=== PATIENT | female | born 1980 | race Caucasian/White ===

== ENCOUNTER 2024-11-20 12:22 | Outpatient (AMB) | payer BC, SELFPAY ==
--- NOTE | 2024-11-20 12:24 | MHC.PC.OV ---
Vital Signs 11/20/24 12:30 Height 5 ft 5 in Weight 198 lb BMI 32.9 BP 122/72 Blood Pressure Location Lt brachial Position Sitting Respiration 12 Pulse 68 Pulse Source Pulse Oximeter Temp 97.2 F Temp Source Oral Pulse Oximetry (%) 99 Oxygen Delivery Method Room Air Intake Visit Reasons: LAITH from María's office/continuity of care Intake Note: LAITH to establish care. Patient wants to get tested for diabetes because frequency and her mother side of the family has it. Administrative Specialist Required: No Allergies acetaminophen [From Percocet] Adverse Reaction (Severe, Verified 11/20/24 12:29) Itching oxycodone [From Percocet] Adverse Reaction (Severe, Verified 11/20/24 12:29) Itching Tobacco use date assessed: 11/20/24 Dental Screening Dental Screen Date: 11/20/24 Did you have a dental visit in the last 12 months?: No Did you have a dental problem in the last 6 months where you did not have access to dental care?: No Was dental information given to patient?: No HPI HPI Comments History of Present Illness Details 44 y/o F with obesity, NESSA, MDD, seasonal allergies, family hx lung ca (Mom), current nicotine vape use, former smoker, current MJ use, perimenopause, scoliosis Fhx: mom lung ca Surgery: oral surgery 2019 Social: [employer] Maintanence Tdap admin today Mammo she would like to defer to LEG ASSEMBLER on this DEXA still getting periods Colon due for first age 45, referred today Pap referred to LEG ASSEMBLER today Specialists [facility] LEG ASSEMBLER Chiro History of Present Illness - The patient is a 44-year-old female presenting to establish care and for CPE Previous PCP: Dr Daniel, no records Optho - wears glasses, last exam about 1 year ago. - Medical hx includes: Obesity, environmental allergies, major depressive disorder. - Nicotine vape use; smokes marijuana. - Family history of lung cancer, brain and bone metastasis, hepatitis C, and heart disease. - Lack of routine medical care for two decades. - Concerns about potential diabetes. - Perimenopausal with night sweats and sleep issues. - Scoliosis under rn complex care. - Tooth extraction in 2019; lacks recent screenings. - Seeks screening for colonoscopy and gynecological evaluation. 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 - Substance use: Former smoker, currently using nicotine vape; smokes marijuana. - Exercise: Limited due to a weight limit from chiropractic treatment for scoliosis. - Lifestyle: Uses a walking pad at home, restricted due to weight of equipment. - Nutrition: Weight gain noted; no specific dietary details provided. - Social engagement: Prefers using a digital portal for communication; avoids phone conversations. Health Maintenance - Tetanus vaccination up to date. - Referral for mammography and gynecological consultation. - Colonoscopy referral initiated due to age and family history. - Perimenopausal symptoms to be managed through gynecological referral. - Scoliosis managed by rn complex care with imaging and weight limitations discussed. - No regular physical exams or health screenings in the past 20 years. - Blood work ordered to assess potential diabetes risk. Review of Systems - Constitutional: Reports no recent illness; concerned about diabetes. - Skin: Reports good skin quality, concerned about vitamin D deficiency. - Respiratory: Reports former smoking, current nicotine vaping, and use of marijuana; no current respiratory symptoms. - Cardiovascular: Denies cardiovascular symptoms, family history of heart disease noted. - Gastrointestinal: Denies recent changes; interested in colon cancer screening. - Genitourinary: Reports regular menstruation; no mammogram. - Musculoskeletal: Reports scoliosis under rn complex care; no orthopedic symptoms. - Neurological: Denies neurological symptoms; concern for undiagnosed ADHD. - Psychological: Reports anxiety and depression; declines counseling. Physical Exam General: Well developed, well nourished, in no acute distress. Appears stated age. Head: Normocephalic, atraumatic. Eyes: Pupils are equal, round and reactive to light and accommodation. Conjunctivae are clear. Vision grossly normal. Patient wears glasses. Ears: TMs clear AU, EACS WNL. Beautiful eardrums noted. Nose: Patent, without discharge. Neck: Supple, no adenopathy or thyromegaly. No pain or tenderness upon examination. Breast: Edu on SBE. Referral to OBGYN for routine checks and perimenopausal symptoms. Lungs: Clear to auscultation bilaterally. No rales, rhonchi or wheeze noted. Good air flow in all avendano. Heart: Regular rate and rhythm. No murmurs, click, rubs or gallops are noted. Abdomen: Bowel sounds present in all quadrants. The abdomen is soft, nontender, with no masses or organomegaly noted. No hernias are noted. Pooping and peeing are normal for the patient. : Deferred. Reviewed recommendations for routine LEG ASSEMBLER. Pulses: Peripheral pulses are equal and palpable bilaterally. Extremities: No clubbing, cyanosis nor edema is noted. Neurologic: Gait and station normal. Cranial Nerves 2-12 intact. Motor strength grossly symmetrical and intact. No sensory loss. Balance normal. Skin: No rashes, ulcers, or lesions noted. Turgor is good. Skin color is good. Hair and nails are without abnormalities. Patient has nice skin, likely due to avoiding sun exposure. Psych: Normal eye contact, affect and mood appropriate, and normal interactions. Patient is alert and appropriate to context. Anxiety and depression present, but patient manages without medication. Suspected ADHD, but patient prefers not to pursue treatment. Results Pending Discussion Notes I discussed with the patient the importance of establishing regular health care and conducting necessary screenings. We reviewed the need for a colonoscopy due to her age, and I explained that it starts with a consultation before the procedure. I also talked about how colorectal cancer screening becomes important at 45. We discussed her perimenopausal symptoms, providing a referral to a operations team leader for management. I advised the patient to get her blood work done today to assess diabetes risk and will communicate the results through the patient portal. I encouraged using the patient portal for future communications and explained its benefits. I recommended that she continues to avoid smoking, noting the current unknowns surrounding vaping risk. Additionally, we addressed lifestyle management with her scoliosis and any activity limitations. Assessment and Plan 1. Obesity - Recommend weight management; exercise limited by rn complex care. 2. Environmental Allergies - Continue allergy medication. 3. Major Depressive Disorder - Reach out if would like counseling or meds. 4. Nicotine Dependence - Advise cessation; discuss vaping risks. 5. Scoliosis - Maintain rn complex care; manage weight limit. 6. Perimenopause - Gynecology referral for symptoms management. 7. Risk of Diabetes - Blood work ordered to evaluate. 8. Health Maintenance - Arrange colonoscopy and gynecological evaluations. 9. Family History - Highlight need for regular health screenings. Patient Instructions - Schedule and attend appointments for mammogram and colonoscopy consultation. - Complete blood tests today for diabetes screening; results will be available on the portal. - Follow up with operations team leader for perimenopausal symptoms. - Use the patient portal for communication and further follow-ups. - Continue allergy medications and manage nicotine use. - Be aware of family history and importance of regular screenings. - RTO 1 year CPE, sooner PRN Consent Patient was informed and verbally consented to the use of an ambient scribe for clinic note documentation during this visit. An additional 20 minutes was spent addressing the problem(s) noted at todays visit. This includes time spent before the visit reviewing the chart, time spent during the visit, and time spent after the visit on documentation reviewing laboratory results, diagnostic imaging, medications, performing a medically necessary evaluation, counseling on diagnoses, care coordination, ordering appropriate tests, ordering appropriate medications, review of tests performed by other providers, reporting test results with the patient, communication with other healthcare providers. [facility], LAT[facility] Medical History (Updated 11/20/24 @ 17:30 by Shyanne Gupta [facility]) Allergies Anxiety and depression COPD (chronic obstructive pulmonary disease) Surgical History (Updated 11/20/24 @ 12:42 by Amelia King MA) H/O oral surgery (~2019) Family History (Updated 11/20/24 @ 12:45 by Amelia King MA) Father HTN (hypertension) Substance abuse Maternal Grandmother Cardiovascular disease Paternal Grandmother Cardiovascular disease Mother Lung cancer Brain cancer Bone cancer Substance abuse Social History (Updated 11/20/24 @ 12:43 by Amelia King MA) Household Members: Spouse Housing: House Are you a primary client care manager to a significant other at home: No Do you presently have visiting nurse or other home services: No Alcohol intake: current Alcohol intake frequency: a few times a month Patient Tobacco Use Status: Never used Tobacco e-Cigarette/Vaping Use: Never Used Second Hand Smoke Exposure: No Substance Use Type: Marijuana service: No Current occupational status: employed 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 1. Little interest or pleasure in doing things: more than half the days 2. Feeling down, depressed, or hopeless: not at all 3. Trouble falling or staying asleep, or sleeping too much: nearly every day 4. Feeling tired or having little energy: nearly every day 5. Poor appetite or overeating: nearly every day 6. Feeling bad about yourself - or that you are a failure or have let yourself or your family down: more than half the days 7. Trouble concentrating on things, such as reading the newspaper or watching television: nearly every day 8. Moving or speaking so slowly that other people could have noticed. Or the opposite - being so fidgety or restless that you have been moving around a lot more than usual: not at all 9. Thoughts that you would be better off or of hurting yourself in some way: not at all Total score: 16 Depression Screening Interpretation: Positive Depression Screening Follow-up: Existing condition and In treatment Depression Screening Done: Yes 96834 - PHQ-9 Billing: Yes Source: Developed by Drs. Scooby Farrar, Lila Albright, Juan Cline and colleagues, with an educational jeannine from [employer]. Thrive Questionnaire Date Thrive assessed: 11/20/24 I am a: Patient What is your living situation today?: I have a steady place to live Within the past 12 months, did the food you bought not last and you didn't have the money to get more?: Never true Within the past 12 months, did you worry whether your food would run out before you got money to buy more?: Never true Do you have trouble paying for medicines?: No Do you have trouble getting transportation to medical appointments?: No Do you have trouble paying your heating and electricity bill?: No Do you have trouble taking care of your child, family member or friend?: No Do you have trouble with day-to-day activities such as bathing, preparing meals, shopping, managing finances, etc.?: No Are you currently unemployed and looking for a job?: No Are you interested in more education?: No Please select the resources that you would like help with: None Currently or been in a relationship where the following occur: No concerns reported THRIVE Score: 0 AUDIT C Alcohol Use Questionnaire (AUDIT-C) 1. How often do you have a drink containing alcohol?: Monthly or less 2. How many drinks containing alcohol do you have on a typical day when you are drinking?: 1 or 2 3. How often do you have six or more drinks on one occasion?: Never Total Score: 1 Score Reviewed/Action Taken: Yes NESSA-7 AMB Questionnaire NESSA-7 Date NESSA - 7 assessed: 11/20/24 Feeling nervous, anxious, or on edge: 1 = Several days Not being able to stop or control worryin = Several days Worrying too much about different things: 1 = Several days Trouble relaxin = Nearly every day Being so restless that it is hard to sit still: 3 = Nearly every day Becoming easily annoyed or irritable: 3 = Nearly every day Feeling afraid as if something awful might happen: 0 = Not at all Total NESSA-7 score (0-4 normal; 5-9 mild; 10-14 moderate; 15-21 severe): 12 Source: Developed by Drs. Scooby Farrar, Lila Albright, Juan Cline and colleagues, with an educational jeannine from [employer]. NESSA-7 Assessment Billing NESSA-7 Assessment Tool: NESSA-7 Assessment 16460 Physical exam (Primary Care) Vital Signs: Last Vital Signs Temp 97.2 F 11/20/24 12:30 Pulse 68 11/20/24 12:30 Resp 12 11/20/24 12:30 BP 122/72 11/20/24 12:30 Pulse Ox 99 11/20/24 12:30 Oxygen Delivery Method Room Air 11/20/24 12:30 BMI result Body Mass Index 32.9 BMI Assessment/Plan discussion: High BMI High, discussed plan: lifestyle Tobacco/Smoking Status: Tobacco use Status Tobacco use date assessed 11/20/24 11/20/24 12:27 Patient Tobacco Use Status Never used Tobacco 11/20/24 12:43 e-Cigarette/Vaping Use Never Used 11/20/24 12:43 Are you ready to quit: Yes Tobacco cessation counseling provided: Yes Items discussed: Nicotine replacement, QuitWorks and Other Relapse Prevention: discussed the importance of a supportive environment, discussed extending NRT, discussed negative mood or depression after quitting, weight gain after smoking is common and discussed dietary, exercise and/or lifestyle changes Number of minutes spent counselin CPT code: 47593 - 4-10 Minutes PHQ-9: PHQ-9 Score PHQ-9: Total score 16 11/20/24 13:10 Depression Screening Interpretation: Positive Depression Screening Follow-up: Existing condition and In treatment Thrive Assessment: Date of Thrive Assessment Date Thrive assessed 11/20/24 11/20/24 12:27 Currently or been in a relationship where the following occur: No concerns reported Immunizations Boostrix Tdap 2.5 Lf unit-8 mcg-5 Lf/0.5 mL intramuscular syringe Performing Provider: PERI Levy Performing Location: [facility] [place] Family Medicine Administered by: Amelia King MA on 11/20/24 12:39 Dose Route Admin Location Dispensed Lot Number Expiration Date [facility] Clock Repair Technician 0.5 mL IM Right Deltoid 0.5 mL [id number] 02/12/27 [id number] [employer] VIS Given Date VIS Provided VIS Publication Date 11/20/24 Single Vaccine 21 Eligibility Eligibility Date Funding Source Not [facility] Eligible 11/20/24 Private Coding Level of Care Code New Pt Level 2 (06393) New Pt Prev Care 40-64y(23196) Diagnoses Encounter to establish care Z76.89 Environmental allergies Z91.09 NESSA (generalized anxiety disorder) F41.1 Moderate episode of recurrent major depressive disorder F33.1 Active/Remission status: currently active Major depression episode severity: moderate Major depression recurrence: recurrent Need for Tdap vaccination Z23 Obesity (BMI 30-39.9) E66.9 Family history of lung cancer Z80.1 Family history of early CAD Z82.49 Current every day vaping Z72.89 Marihuana smoker F12.90 Perimenopausal N95.1 Breast cancer screening Z12.39 Laboratory exam ordered as part of routine general medical examination Z00.00 Encounter for general adult medical examination without abnormal findings Z00.00 Additional Codes NESSA-7 Assessment Billing - NESSA-7 Assessment Tool: NESSA-7 Assessment 08580 ([id number]) PHQ-9 - 27573 - PHQ-9 Billing: Yes ([id number]) Vital Signs *Quality* - CPT code: 36340 - 4-10 Minutes ([id number]) Assessment & Plan Assessment & Plan (1) Encounter to establish care: Code(s): Z76.89 - Persons encountering health services in other specified circumstances (2) Environmental allergies: Code(s): Z91.09 - Other allergy status, other than to drugs and biological substances Category: Medical (3) NESSA (generalized anxiety disorder): Code(s): F41.1 - Generalized anxiety disorder Category: Medical (4) MDD (major depressive disorder): Code(s): F32.9 - Major depressive disorder, single episode, unspecified Category: Medical Qualifiers: Active/Remission status: currently active Major depression episode severity: moderate Major depression recurrence: recurrent Qualified Code(s): F33.1 - Major depressive disorder, recurrent, moderate (5) Need for Tdap vaccination: Code(s): Z23 - Encounter for immunization Category: Medical (6) Obesity (BMI 30-39.9): Code(s): E66.9 - Obesity, unspecified Category: Medical (7) Family history of lung cancer: Comment: Mom Code(s): Z80.1 - Family history of malignant neoplasm of trachea, bronchus and lung Category: Medical (8) Family history of early CAD: Code(s): Z82.49 - Family history of ischemic heart disease and other diseases of the circulatory system Category: Medical (9) Current every day vaping: Comment: Smoking Cessation How to Quit There are a lot of ways to quit smoking and many resources to help you. Family members, friends, and co-workers may be supportive or encouraging, but to be successful the desire and commitment to quit must be your own. Most people who have been able to successfully quit smoking made at least one unsuccessful attempt in the past. Try not to view past attempts to quit as failures, but rather as learning experiences. Stopping smoking or using smokeless tobacco is difficult, but anyone can do it. Know the symptoms to expect when you stop. Common symptoms include: ? An intense craving for nicotine ? Anxiety, tension, restlessness, frustration, or impatience ? Difficulty concentrating ? Drowsiness or trouble sleeping, as well as bad dreams and nightmares ? Drowsiness and trouble sleeping ? Headaches ? Increased appetite and weight gain ? Irritability or depression How severe your symptoms are depends on how long you smoked and how many cigarettes you smoked each day. Feel ready to quit? ? First and foremost, set a quit date and quit completely on that day. Before your quit date, you may begin reducing your cigarette use. But remember, there is no safe level of cigarette smoking. ? List the reasons why you want to quit. Include both short- and long-term benefits. ? Identify the times you are most likely to smoke. For example, do you tend to smoke when feeling stressed or down? When out at night with friends? While drinking coffee or alcohol? When bored? While driving? Right after a meal or sex? During a work break? While watching TV or playing cards? When you are with other smokers? ? Let all of your friends, family, and co-workers know of your plan to stop smoking and your quit date. Just being aware that they know what you're going through can be helpful, especially when you are grumpy. ? Get rid of all your cigarettes just before the quit date, and clean out anything that smells like smoke, such as clothes and furniture. Make a plan about what you will do instead of smoking at those times when you are most likely to smoke. ? Be as specific as possible. For example, drink tea instead of coffee -- tea may not trigger the desire for a cigarette. Or, take a walk when you feel stressed. ? Remove ashtrays and cigarettes from the car. Place pretzels or hard candies there instead. Pretend-smoke with a straw. ? Find activities that focus your hands and mind but are not taxing or fattening. Computer games, solitaire, knitting, sewing, and crossword puzzles may help. ? If you normally smoke after eating, find other ways to end a meal. Play a tape or CD, eat a piece of fruit, get up and make a phone call, or take a walk (a good distraction that also alford calories). Make other changes in your lifestyle. ? Change your daily schedule and habits. Eat at different times or eat several small meals instead of three large ones. Sit in a different chair or even a different room. ? Satisfy your oral habits by eating celery or other low-calorie snack, chewing sugarless gum, or sucking on a cinnamon stick. ? Go to public places and restaurants where smoking is prohibited or restricted. ? Eat regular meals and don't eat too much candy or sweet things. ? Get more exercise. Take walks or ride a bike. Exercise helps relieve the urge to smoke. Set short-term quitting goals and reward yourself when you meet them. ? Every day, put the money you normally spend on cigarettes in a jar. Then buy something pleasurable after a period of time. ? Try not to think about all the days ahead you will need to avoid smoking. Take it one day at a time. ? Even one puff or one cigarette will make your desire for more cigarettes even stronger. However, it is normal to make mistakes. So even if you have one cigarette, you don't need to take the next one. Other tips to help you quit smoking and stick to it: ? Enroll in a smoking cessation program (hospitals, health departments, community centers, and work sites often offer programs). Learn about self-hypnosis or other techniques. ? Ask your health care provider about prescription medications that are safe and appropriate for you. ? Find out about nicotine patches, gum, and sprays. The [employer]'s web site -- www.cancer.org -- is an excellent resource for smokers who are trying to quit, and the [employer] [place] [employer] can help some smokers kick the habit. Above all, don't get discouraged if you aren't able to quit smoking the first time. Nicotine addiction is a hard habit to break. Try something different next time. Develop new strategies, and try again. Many people take several attempts to finally kick the habit. Code(s): Z72.89 - Other problems related to lifestyle Category: Social Hx (10) Marihuana smoker: Code(s): F12.90 - Cannabis use, unspecified, uncomplicated Category: Medical (11) Perimenopausal: Code(s): N95.1 - Menopausal and female climacteric states Category: Medical (12) Breast cancer screening: Code(s): Z12.39 - Encounter for other screening for malignant neoplasm of breast Category: Medical (13) Laboratory exam ordered as part of routine general medical examination: Code(s): Z00.00 - Encounter for general adult medical examination without abnormal findings Category: Medical (14) Encounter for general adult medical examination without abnormal findings: Onset Date: ~11/20/24 Code(s): Z00.00 - Encounter for general adult medical examination without abnormal findings Category: Medical Plan . Orders: Orders TDaP Immunization Today Z23 - Encounter for immunization Complete Blood Count no Diff Today Z00.00 - Encounter for general adult medical examination without abnormal findings Comprehensive Met. Panel Today Z00.00 - Encounter for general adult medical examination without abnormal findings Microalbumin, Random (w Creat) Today Z00.00 - Encounter for general adult medical examination without abnormal findings TSH reflex Free T4 Today Z00.00 - Encounter for general adult medical examination without abnormal findings Vitamin D 25-OH Total Today Z00.00 - Encounter for general adult medical examination without abnormal findings Hemoglobin A1c Today Z00.00 - Encounter for general adult medical examination without abnormal findings IRON PROFILE Today Z00.00 - Encounter for general adult medical examination without abnormal findings Lipid Panel Today Z00.00 - Encounter for general adult medical examination without abnormal findings Vitamin B12 and Folate Today Z00.00 - Encounter for general adult medical examination without abnormal findings Referrals Gastroenterology Referral Z12.11 - Encounter for screening for malignant neoplasm of colon THERAPEUTIC RADIOLOGIST Referral N95.1 - Menopausal and female climacteric states, Z12.39 - Encounter for other screening for malignant neoplasm of breast, Z12.4 - Encounter for screening for malignant neoplasm of cervix Patient Instructions: Health screenings for women You should visit your health care provider from time to time, even if you are healthy. The purpose of these visits is to: Screen for medical issues Assess your risk for future medical problems Encourage a healthy lifestyle Update vaccinations and other preventive care services Help you get to know your provider in case of an illness Information Even if you feel fine, you should still see your provider for regular checkups. These visits can help you avoid problems in the future. For example, the only way to find out if you have high blood pressure is to have it checked regularly. High blood sugar and high cholesterol levels also may not have any symptoms in the early stages. A simple blood test can check for these conditions. There are specific times when you should see your provider or receive specific health screenings. The [place] Preventive Services Task Force publishes a list of recommended screenings. Below are screening guidelines for women ages 18 to 39. BLOOD PRESSURE SCREENING Your blood pressure should be checked at least once every 3 to 5 years if: Your blood pressure is in the normal range (top number less than 120 mm Hg and bottom number less than 80 mm Hg) You don't have risk factors for high blood pressure Ask your provider if you need your blood pressure checked more often if: The top number is 120 to 129 mm Hg or the bottom number is 70 to 79 mm Hg You have diabetes, heart disease, kidney problems, are overweight, or have certain other health conditions You have a first-degree relative with high blood pressure You are Black You had high blood pressure during a If the top number is 130 mm Hg or greater or the bottom number is 80 mm Hg or greater, this is considered stage 1 hypertension. Schedule an appointment with your provider to learn how you can reduce your blood pressure. Watch for blood pressure screenings in your area. Ask your provider if you can stop in to have your blood pressure checked. BREAST CANCER SCREENING Experts do not agree about the benefits of breast self-exams in finding breast cancer or saving lives. Talk to your provider about what is best for you. A screening mammogram is not recommended for most women under age 40. Your provider may discuss and recommend mammograms, MRI scans, or ultrasounds if you have an increased risk for breast cancer, such as: A mother or sister who had breast cancer at a young age (most often starting screening earlier than the age the close relative was diagnosed) You carry a high-risk genetic marker CERVICAL CANCER SCREENING Cervical cancer screening should start at age 21 years unless your provider advises otherwise. After the first test: Women ages 21 through 29 should have a Pap test every 3 years. Exoprts do not agree on whether HPV testing is recommended for this age group. Women ages 30 through 65 should be screened with either a Pap test every 3 years or the HPV test every 5 years or both tests every 5 years (called cotesting ). Women who have been treated for precancer (cervical dysplasia) should continue to have Pap tests for 20 years after treatment or until age 65, whichever is longer. If you have had your uterus and cervix removed (total hysterectomy), and you have not been diagnosed with cervical cancer or precancer (high grade cervical neoplasia), you do not need cervical cancer screening. CHOLESTEROL SCREENING Cholesterol screening should begin at: Age 45 for women with no known risk factors for coronary heart disease Age 20 for women with known risk factors for coronary heart disease Repeat cholesterol screening should take place: Every 5 years for women with normal cholesterol levels More often if changes occur in lifestyle (including weight gain and diet) More often if you have diabetes, heart disease, kidney problems, or certain other conditions DIABETES SCREENING You should be screened for diabetes starting at age 35 and then repeated every 3 years if you have no risk factors for diabetes. Screening may need to start earlier and be repeated more often if you have other risk factors for diabetes, such as: You have a first degree relative with diabetes. You are overweight or have obesity. You have high blood pressure, prediabetes, or a history of heart disease. Screening for diabetes should be done if you are planning to become and you are overweight and have other risk factors such as high blood pressure. DENTAL EXAM Go to the dentist once or twice every year for an exam and cleaning. Your dentist will evaluate if you need more frequent visits. EYE EXAM Have an eye exam every 5 to 10 years before age 40. If you have vision problems, have an eye exam every 2 years or more often if recommended by your provider. You should have an eye exam that includes an examination of your retina (back of your eye) at least every year if you have diabetes. IMMUNIZATIONS Commonly needed vaccines include: Flu shot: get one every year. COVID-19 vaccine: ask your provider what is best for you. Tetanus-diphtheria and acellular pertussis (Tdap) vaccine: have one at or after age 19 as one of your tetanus-diphtheria vaccines if you did not receive it as an adolescent. Tetanus-diphtheria: have a booster (or Tdap) every 10 years. Varicella vaccine: receive 2 doses if you never had chickenpox or the varicella vaccine. Hepatitis B vaccine: receive 2, 3, or 4 doses, depending on your exact circumstances. Measles, mumps, and rubella (MMR) vaccine: receive 1 to 2 doses if you are not already immune to MMR. Your provider can tell you if you are immune. Ask your provider about the human papillomavirus (HPV) vaccine if: You have not received the HPV vaccine in the past You have not completed the full vaccine series (you should catch up on this shot) Ask your provider if you should receive other immunizations if you have certain health problems that increase your risk for some diseases such as pneumonia. INFECTIOUS DISEASE SCREENING Women who are sexually active should be screened for chlamydia and gonorrhea up until age 25. Women 25 years and older should be screened for chlamydia and gonorrhea if at high risk. Screening for hepatitis C: All adults ages 18 to 79 should get a one-time test for hepatitis C. people should be screened at every . Screening for human immunodeficiency virus (HIV): All people ages 15 to 65 should get a one-time test for HIV. Depending on your lifestyle and medical history, you may also need to be screened for infections such as syphilis and HIV, as well as other infections. PHYSICAL EXAM All adults should visit their provider from time to time, even if they are healthy. The purpose of these visits is to: Screen for disease Assess your risk of future medical problems Encourage a healthy lifestyle Update your vaccinations and other preventive care services Maintain a relationship with a provider in case of an illness Your height, weight, and BMI should be checked at every exam. During your exam, your provider may ask you about: Depression and anxiety Diet and exercise Alcohol and tobacco use Safety issues, such as using seat belts, smoke detectors, and intimate partner violence Your medicines and risk for interactions SKIN SELF-EXAM Your provider may check your skin for signs of skin cancer, especially if you're at high risk, such as if you: Have had skin cancer before Have close relatives with skin cancer Have a weakened immune system OTHER SCREENING Talk with your provider about colon cancer screening if you have a strong family history of colon cancer or polyps, or if you have had inflammatory bowel disease or polyps yourself. Routine bone density screening of women under 40 is not recommended. Walk-In Care (Urgent Care): We Make it Easy Walk-in for urgent medical issues such as: ? Seasonal Allergies ? Insect Bites ? Cough ? Diarrhea ? Acute Asthma Attacks ? Back, Knee or Joint Pain ? Ear Infection ? Fever without a Rash ? Headaches ? Nausea ? [place] Eye, Rash or Skin Irritation ? Sore Throat ? Sports Physicals ? Vomiting Most insurances are accepted. Patients do not need to be part of the [facility] to seek care at the walk-in clinic. Locations [facility] , [place] [address] ? [phone] [facility] Walk-In Care in [place] provides services to ages 18 and over. Open Tuesday-Tuesday: 8 a.m. to 5 p.m. and Tuesday: 9 a.m. to 3 p.m.* *Hours may vary due to staffing availability. To confirm Walk-In Care hours in [place], please call [phone]. [address] [place] [address] ? [phone] [facility] Walk-In Care in [place] provides services to ages 12 and over. Open Tuesday-Tuesday: 8 a.m. to 5 p.m. Hours may vary due to staffing availability. To confirm Walk-In Care hours in [place], please call [phone]. LABORATORY SERVICES: [facility] Lab ? Primary Location [address] [place] [address] Tuesday through Tuesday 6:00 AM ? 5:00 PM Tuesday 7:00 AM ? 11:00 AM* [phone] The [facility] Lab is centrally located near the front entrance of the Medical Center for easy outpatient access. Convenient parking is provided for outpatients. *Hours may vary due to staffing availability. To confirm Laboratory hours for any location, please call [phone]. Offsite Location For your convenience, we offer offsite laboratory draw stations at the following locations: [address] [place] [address] ? [facility] [address], [address] [place] [address] Tuesday through Tuesday 7:30 AM ? 1:00 PM* [phone] *Hours may vary due to staffing availability. To confirm Laboratory hours for any location, please call [phone]. [place] ? [address] Tuesday through Tuesday 6:00 AM ? 3:30 PM* Tuesday 6:30 AM ? 3 PM* [phone] *Hours may vary due to staffing availability. To confirm Laboratory hours for any location, please call [phone] [place] [address] Tuesday through Tuesday 7:30 AM ? 4:00 PM* [phone] *Hours may vary due to staffing availability. To confirm Laboratory hours for any location, please call [phone] [place] [address] Tuesday through 9:00 AM ? 4:00 PM* *Hours may vary due to staffing availability. To confirm Laboratory hours for any location, please call [phone]. Appointments are not necessary. Walk-ins are welcome. Like all the departments throughout the [facility], our Lab undergoes frequent reviews to ensure the quality and accuracy of test results, and our staff takes special pride in its status as a nationally accredited facility. Patient Portal: ONE PATIENT. ONE RECORD. BETTER CARE. [facility] has a fully integrated, cutting-edge mobile electronic health information system that has revolutionized the way we care for our patients and manage our organization. This system improves communication and coordination enabling us to provide safe, higher-quality care, and an overall positive experience for staff and patients. Our first priority, as always, is to deliver the highest quality care possible. The system is running in the background supporting that priority. This portal is for all [facility] services and practices. If you are experiencing any technical difficulties with enrolling or logging into the Patient Portal please complete the [facility] Patient Portal Technical Support Form. [facility] now offers a new secure on-line interactive tool for patients to review their health information ? ?Patient Portal. This interactive web portal will enable patients and their families to take an active role in their care by providing easy, secure access to their health information via the internet. The Patient Portal provides patients with instant access to their health information, including laboratory results, medications, allergies, demographic information, visit history, and more. In addition to managing their own care, parents and health care proxies with authorized consent will appreciate the ability to access the records of those individuals for whom they provide care. Please note: if you wish to gain access (Proxy) to another patient?s portal, you will be required to come to the Medical Records Department in person at [facility]. Both the patient giving proxy access and the proxy will need to provide photo identification and complete the appropriate authorization. The Patient Portal also allows track their appointments online. The [facility] Patient Portal also saves patients time by allowing them to submit updates to their demographic and contact information prior to their visits. Portal email notifications will also alert patients to any new activity on their portal, such as test results and new appointments. In order to initially enroll in the [facility] Patient Portal, you will need to enter some required information including the following: your [facility] Medical Record number your personal home email address name date of Please note: In order to enroll in the [facility] Patient Portal, we need to have your email address on file in your electronic medical record. ?The email address needs to be specific for one person (yourself) in order for your Portal enrollment to be successful. ?You can update your email address in person with our Registration staff when you are registering for a hospital visit. ?Otherwise, you will need to come to the Health Information Management (Medical Records) Department at [facility]. ?We are open from Tuesday ? Tuesday from 7:30 a.m. ? 4:30 p.m. ?You will be required to present a photo id. Once you have successfully enrolled in the Patient Portal, you will receive a one-time user id and password for the Portal, sent to your email address. ?This will allow you to log into the Patient Portal within 99 hrs and reset your own logon id and password, and define personal security questions. ?Once your permanent login and password have been set, you can log into the [facility] Patient Portal at any time via the blue button above or from the Portal Logon button on any page of the [facility] website. [facility] and [facility] encourage all of our patients to enroll in Patient Portal as it presents a valuable opportunity for patients and their families to actively participate in their care and stay healthy Welcome to [facility]. ?We look forward to working with you.
[2024-11-20 12:30] VITALS: BP 122/72; PULSE 68; RESP 12; TEMP 36.2; O2SAT 99; BMI 32.9
--- OUTSIDE RECORDS SUMMARY | 2024-11-20 13:45 | XMS_ITS | Clinical Summary ---
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 Active Social History Tobacco Use Types Packs/Day Years Used Date Smoking Tobacco: Some Days Comments No Sex and Gender Information Value Date Recorded Sex Assigned at Not on file Legal Sex Female 8:08 AM EDT Gender Identity Not on file Sexual Orientation Not on file Last Filed Vital Signs Vital Sign Reading Time Taken Comments Blood Pressure 132/72 09/17/2015 8:35 AM EDT Pulse 98 09/17/2015 8:35 AM EDT Temperature 39 ??C (102.2 ??F) 09/17/2015 8:35 AM EDT Respiratory Rate 16 09/17/2015 8:35 AM EDT Oxygen Saturation 97% 09/17/2015 8:35 AM EDT Inhaled Oxygen Concentration - - Weight - - Height - - Body Mass Index - - Plan of Treatment Health Maintenance Due Date Last Done Comments Depression: Screening Annual ly using PHQ-2/9 in Adults 18 yrs or above (or HM Modifier)([facility]) 1998 Hepatitis C Virus Infection in Adolescents and Adults: Screening (or Modifier) ([facility]) 1998 SDOH Screening Reminder: Nu vogel for all adults ([facility]) 1998 Tobacco Smoking Cessation: i n Adults excluding Women: Behavioral and Pharmacotherapy Interventions ([facility]) 1998 DTaP/Tdap/Td Vaccines ([facility]) (1 - Tdap) 1999 zzRETIRED Lipid Screening: O nce for Women aged 20 to 45 yrs ([facility]) 2000 Cervical Cancer Screenin 1-65 yrs of age (or Modifier) 2001 Cervical Cancer Screening: P ap every 3 yrs pts age 21-65 2001 Cervical Cancer: Pap Screeni ng with Modifier timing ([facility]) 2001 Cervical Cancer: hrHPV alone or with cotesting Pap for Pts 30-65yrs screening every 5yrs ([facility]) 2001 COVID-19 Vaccine Screening: Initial Series and Booster Status ([facility]) (2023- season) 2024 Flu Vaccination: Yearly for ages 18mos through 64 years (or Modifier)([facility]) 01/18/2025 Zoster/Shingles Vaccine Seri es Screening: Adults aged 18+ yrs (or HM Modifiers)([facility]) (1 of 2) 2030 Pneumococcal Vaccination Scr eening: Pts 0-19 & 19-49 yrs of age ([facility]) Aged Out No longer eligible based on patient's age to complete this topic Medical Devices Not on file Insurance [place] Care Teams Supervisor Maintenance Relationship Specialty Start Date End Date No, Pcp, RECRUITMENT ADVERTISING MANAGER N/A Do not use PCP - General 09/17/15
== END 2024-11-20 13:27 | disposition home or self-care (01) ==
LOC: HO.HMCFM 12:23
PROVIDERS: PCP Nurse Practitioner Family; Visit Provider Nurse Practitioner Family
DX: Z00.00 Encounter for general adult medical examination without abnormal findings (principal); N95.1 Menopausal and female climacteric states; F33.1 Major depressive disorder, recurrent, moderate; F41.1 Generalized anxiety disorder; Z91.09 Other allergy status, other than to drugs and biological substances; Z23 Encounter for immunization; E66.9 Obesity, unspecified; Z80.1 Family history of malignant neoplasm of trachea, bronchus and lung; Z82.49 Family history of ischemic heart disease and other diseases of the circulatory system; Z72.89 Other problems related to lifestyle; F12.90 Cannabis use, unspecified, uncomplicated; Z12.39 Encounter for other screening for malignant neoplasm of breast

== ENCOUNTER → 2024-11-20 12:22 | Outpatient (BNVA) | payer BC, SELFPAY | PROVIDERS: PCP Nurse Practitioner Family; Visit Provider Nurse Practitioner Family | DX: Z00.00 Encounter for general adult medical examination without abnormal findings (principal); E78.00 Pure hypercholesterolemia, unspecified; E55.9 Vitamin D deficiency, unspecified; E66.9 Obesity, unspecified; F17.290 Nicotine dependence, other tobacco product, uncomplicated; M41.9 Scoliosis, unspecified; N95.9 Unspecified menopausal and perimenopausal disorder; F41.1 Generalized anxiety disorder; F33.1 Major depressive disorder, recurrent, moderate; F12.90 Cannabis use, unspecified, uncomplicated; N95.1 Menopausal and female climacteric states; Z91.09 Other allergy status, other than to drugs and biological substances; Z76.89 Persons encountering health services in other specified circumstances; Z80.1 Family history of malignant neoplasm of trachea, bronchus and lung; Z82.49 Family history of ischemic heart disease and other diseases of the circulatory system; Z23 Encounter for immunization | CPT/HCPCS: 90471; 90715; 96127 ==

== ENCOUNTER 2024-11-20 13:38 | Outpatient (REF) | payer BC, SELFPAY ==
[2024-11-20 18:42] LABS: Hematocrit 38.7 % (37.0-47.0); Hemoglobin 13.2 g/dl (12.0-16.0); Mean Corpuscular HGB Conc 34.1 g/dl (31.0-35.0); Mean Corpuscular Hemoglobin 29.8 pg (27.0-33.0); Mean Corpuscular Volume 87.4 fL (80.0-98.0); Mean Platelet Volume 10.4 fL (9.4-12.3); Platelet Count 299 X10*3/uL (160-400); Red Blood Count 4.43 X10*6/uL (4.20-5.50); Red Cell Distribution Width 12.5 % (11.0-16.0)
[2024-11-20 19:10] LABS: Alanine Aminotransferase 9 U/L (0-31); Albumin Level 4.3 g/dL (3.5-5.0); Alkaline Phosphatase 60 U/L (39-117); Anion Gap 11 (12-20); Aspartate Amino Transferase 21 U/L (5-31); Bilirubin Total 0.3 mg/dL (0.0-1.0); Blood Urea Nitrogen 10 mg/dL (9-16); Calcium 9.1 mg/dL (8.4-10.2); Carbon Dioxide 22 mmol/L (22-29); Chloride 108 mmol/L (96-108); Cholesterol 201 mg/dL (<200); Estimated Glomerular Filt Rate > 60; Glucose Random 72 mg/dL (60-115); HDL Cholesterol 44 mg/dL (>40); Iron 111 mcg/dL (30-160); LDL Cholesterol Calculated 138 mg/dL (<100); Percent Iron Saturation 32 % (15-50); Potassium 3.8 mmol/L (3.3-5.1); Sodium 137 mmol/L (135-145); Total Iron Binding Capacity 346 mcg/dL (228-428); Triglycerides 97 mg/dL (<150); Unsaturated Iron Binding 235 ug/dL
[2024-11-20 19:11] LABS: Creatinine Urine 75.26 mg/dL; Microalbumin Urine < 5.0 mg/L
[2024-11-20 19:12] LABS: TSH reflex Free T4 1.42 uIU/mL (0.32-4.0); Vitamin D 25-OH Total 25.9 ng/mL (>30)
[2024-11-20 19:25] LABS: Folate 9.1 ng/mL (> or = 4.0); Vitamin B12 281 pg/mL (200-900)
[2024-11-21 05:50] LABS: Estimated Average Glucose 97 mg/dL; Hemoglobin A1C 108.0031 umol/L
== END 2024-11-20 13:39 | disposition home or self-care (01) ==
LOC: HO.WFDLDS 13:38
PROVIDERS: Visit Provider Nurse Practitioner Family
DX: Z00.00 Encounter for general adult medical examination without abnormal findings (principal)
CPT/HCPCS: 36415; 80053; 80061; 82043; 82306; 82570; 82607; 82746; 83036; 83540; 84443; 85027